=== PATIENT | female | born 1945 | race Caucasian/White ===

== ENCOUNTER 2020-08-08 10:31 | Emergency (ER) | payer OTHER ==
[~2020-08-08] VITALS: Ht 162.6 cm; Wt 90.7 kg
[2020-08-08 11:03] LABS: ABSOLUTE EOSINOPHILS 0.1 thou/uL (0.0-0.7); ABSOLUTE LYMPHOCYTES 0.7 thou/uL (0.8-5.3); ABSOLUTE MONOCYTES 0.8 thou/uL (0.0-1.2); ABSOLUTE NEUTROPHILS 7.8 thou/uL (1.6-8.1); BASOPHILS 0.4 %; EOSINOPHILS 0.7 %; HEMATOCRIT 41.7 % (37.0-47.0); MCH 33.1 pg (26.0-34.0); MCHC 33.5 g/dL (28.0-37.0); MCV 98.7 fL (80.0-100.0); MPV 7.9 fl. (7.2-11.1); NUCLEATED RBCS 0 /100WBC; PLATELET COUNT* 361 thou/uL (150-400); POLYS 82.9 %; RBC 4.23 mil/uL (4.20-5.00); WBC 9.4 thou/uL (4.0-11.0)
[2020-08-08 11:15] LABS: APTT 24.3 Seconds (25.0-31.3); PROTIME 11.1 Seconds (9.20-11.50)
[2020-08-08 11:20] LABS: ALBUMIN 3.1 g/dL (3.4-5.0); CALCIUM 8.7 mg/dL (8.5-10.1); CREATININE 0.7 mg/dL (0.6-1.3); TOTAL BILIRUBIN 0.7 mg/dL (<0.1-1.0); TOTAL PROTEIN 7.2 g/dL (6.4-8.2)
[2020-08-08 11:21] LABS: POTASSIUM 2.6 mmol/L (3.5-5.1)
[2020-08-08 12:15] LABS: URINE BLOOD TRACE (Negative); URINE CLARITY CLEAR; URINE COLOR YELLOW; URINE GLUCOSE-RANDOM NEGATIVE (Negative); URINE LEUKOCYTES-REFLEX 1+ (Negative); URINE PROTEIN TRACE (Negative); URINE SPECIFIC GRAVITY 1.025 (1.005-1.030)
[2020-08-08 12:18] LABS: ICTOTEST (BILI CONFIRMATORY) Negative (Negative); URINE BILIRUBIN 1+ (Negative); URINE KETONES 3+ (Negative); URINE NITRITE-REFLEX POSITIVE (Negative)
[2020-08-08 12:31] LABS: BACTERIA-REFLEX >30 Many /HPF (None Seen); CASTS None Seen /LPF (None Seen); CRYSTALS None Seen /LPF (None Seen); MUCUS 0-3 Light strn/LPF (None Seen); SQUAMOUS 0-3 Few /LPF (0-3); URINE RBC 0-2 Rare /HPF (0-2); URINE WBC-REFLEX 6-15 Few /HPF (0-5)
[2020-08-08] MEDS ORDERED: KEFLEX500 M1 PO (15:47)
[2020-08-08] MEDS ORDERED: POTASSIUM CHLO20 MEQ PO (15:57)
[2020-08-08 16:07] VITALS: BP 150/85
--- NOTE | 2020-08-08 16:48 | EKG ---
[place] [address] ELECTROCARDIOGRAM REPORT Name: KAILEY SERNA Room: [facility] [place]#: [id number] Admission: 08/08/20 Attend Phys: Discharge: 08/08/20 Date of : 43 Date of Service: 08/08/20 1157 Report #: [id number] THIS REPORT FOR: //name// [facility] ED Test Date: 2020-08-08 Test Time: 11:57:28 Pat Name: KAILEY SERNA Department: Room: Gender: Network Account Manager: [facility] : 1945 Requested By: Suly Red Order Number: [id number] MD: Billy Chavez Measurements Intervals [place] Rate: 88 P: MD: QRS: -33 QRSD: 86 T: -48 QT: 500 QTc: 605 Interpretive Statements Probable sinus rhythm with marked baseline artifact Probable left ventricular hypertrophy Nonspecific T abnormalities, inferior leads Prolonged QT interval No previous ECG available for comparison Electronically Signed On 08-08-2020 16:48:16 [employer] by Billy Chavez [email or web address] <ELECTRONICALLY SIGNED> By: Billy Chavez MD, [facility] 08/08/20 1648 1157 1157 Billy Chavez MD, [facility] /EPI
== END 2020-08-08 16:08 | disposition home or self-care (01) ==
LOC: M.ERS 10:31
PROVIDERS: Nurse Practitioner Family
DX: S22.080A Wedge compression fracture of T11-T12 vertebra, initial encounter for closed fracture (principal); N39.0 Urinary tract infection, site not specified; E87.6 Hypokalemia; Z20.828 Contact with and (suspected) exposure to other viral communicable diseases; Z88.0 Allergy status to penicillin; W18.39XA Other fall on same level, initial encounter; Y93.89 Activity, other specified; Y92.89 Other specified places as the place of occurrence of the external cause; Y99.8 Other external cause status